=== PATIENT | male | born 1980 | race Caucasian/White ===

== ENCOUNTER → 2016-10-30 | Emergency (ER) | payer BC, OTHER ==
[~2016-10-30] MED LIST: diphenhydrAMINE HCL 25 MG CAPSULE (FP) PO ONE; predniSONE 20 MG TABLET (UD) ONE; predniSONE 20 MG TABLET (UD) PO ONE
[2016-10-30 07:39] VITALS: BP 134/70; PULSE 74; TEMP 97.9; BMI 27.3
--- NOTE | 2016-10-30 08:13 | PDOC ---
History of Present Illness - General Chief Complaint: Allergic Reaction Stated Complaint: ALLERGIC REACTION Time Seen by Provider: 10/30/16 07:47 History Source: Patient Exam Limitations: No Limitations - History of Present Illness Initial Comments: 10/30/16 08:21 35-year-old male presents to the emergency with complaints of itching to his chin and upper lip along with his lower lip since yesterday. Patient noted small bumps with mild redness and decided come to the ER since hydrocortisone has not improved his symptoms. 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 Patient also states had nuts that were very oily yesterday but denies true itchiness, difficulty swallowing, or difficulty breathing. Patient denies history of allergies. Timing/Duration: 24 hours Severity: mild Associated Symptoms: reports: rash Past History - Past Medical History Allergies/Adverse Reactions: Allergies Allergy/AdvReac Type Severity Reaction Status Date / Time No Known Allergies Allergy Verified 10/30/16 07:39 Home Medications: Ambulatory Orders Diphenhydramine HCl [Benadryl -] 25 mg PO Q8H PRN #12 capsule 10/30/16 Prednisone [Deltasone -] 40 mg PO DAILY #6 tablet 10/30/16 Other medical history: denies - Psycho/Social/Smoking Cessation Hx Suicidal Ideation: No Smoking History: Never smoked Information on smoking cessation initiated: No Hx Alcohol Use: No Drug/Substance Use Hx: No Substance Use Type: None Patient Lives Alone: No Lives with/in: spouse/SO Review of Systems - Review of Systems Able to Perform ROS?: Yes Constitutional: No: Symptoms Reported HEENTM: No: Symptoms Reported Respiratory: No: Symptoms reported Cardiac (ROS): No: Symptoms Reported Integumentary: Yes: Erythema, Pruritus, Rash *Physical Exam - Vital Signs Last Vital Signs Temp Pulse Resp BP Pulse Ox 97.9 F 74 18 134/70 100 10/30/16 07:37 10/30/16 07:37 10/30/16 07:37 10/30/16 07:37 10/30/16 07:37 - Physical Exam General Appearance: Yes: Nourished, Appropriately Dressed. No: Apparent Distress HEENT: positive: Pharynx Normal. negative: Pharyngeal Erythema Neck: positive: Supple. negative: Lymphadenopathy (R), Lymphadenopathy (L) Respiratory/Chest: positive: Lungs Clear, Normal Breath Sounds. negative: Respiratory Distress, Accessory Muscle Use, Stridor, Wheezing Integumentary: positive: Rash (Noted slightly erythematous fine papular rash to chin lower lip, and upper lip. Noted scattered pinhead size vesicles to the chin region.) Neurologic: positive: Motor Strength 5/5 (ambulatory) Medical Decision Making - Medical Decision Making 10/30/16 08:25 Patient with complaints of pruritic rash to her chin and lips since yesterday. Patient exam appears to have a contact dermatitis likely related to poison akash versus something he touched. Patient be ordered for prednisone and Benadryl here in the ER and discharged home with the same. *DC/Admit/Observation/Transfer Diagnosis at time of Disposition: Contact dermatitis Qualifiers: Contact dermatitis type: unspecified Contact dermatitis trigger: unspecified trigger Qualified Code(s): L25.9 - Unspecified contact dermatitis, unspecified cause - Discharge Dispostion Disposition: HOME Condition at time of disposition: Good - Prescriptions Prescriptions: Diphenhydramine HCl [Benadryl -] 25 mg PO Q8H PRN #12 capsule PRN Reason: For Itching Prednisone [Deltasone -] 40 mg PO DAILY #6 tablet - Referrals Referrals: CLAUDE HANSON [Primary Care Provider] - - Patient Instructions Printed Discharge Instructions: DI for Contact Dermatitis Additional Instructions: Please take medication as prescribed starting tomorrow since your given your first dose of prednisone here. Please take Benadryl as needed for itching. Please do not apply topical associate to the area for the next 5 days.
== END | disposition home or self-care (01) ==
LOC: JER 07:35
DX: L25.9 Unspecified contact dermatitis, unspecified cause (principal)
CPT/HCPCS: 99281-25

== ENCOUNTER 2017-01-19 09:58 | Emergency (ER) | payer OTHER, BC ==
[2017-01-19 10:04] VITALS: BP 132/52; PULSE 65; TEMP 97.6; BMI 26.9
[2017-01-19] MEDS ORDERED: TRIAMCINOLONE ACET 40MG/1ML VIAL IM ONE (10:17)
[2017-01-19] MEDS ORDERED: TRIAMCINOLONE ACET 40MG/1ML VIAL ONE (10:22)
--- NOTE | 2017-01-19 10:39 | PDOC ---
History of Present Illness - General Chief Complaint: Poison [place],Poison Edil Exposure Stated Complaint: POISON EDIL Time Seen by Provider: 01/19/17 10:17 History Source: Patient Exam Limitations: No Limitations - History of Present Illness Initial Comments: 01/19/17 10:34 Patient is a 36-year-old male, no significant medical history currently on no medication presents with vesicular, Toxicodendron patterned rash to bilateral arms. States that he was diagnosed with poison edil and given traumatic along cream it has since been getting worse. Denies any fever, no swelling, denies any rash to testicles or face. Past Medical History: Denies. Allergies: No known allergies Medications: See medication list Family History: Non-contributory Social History: Denies smoking, alcohol use, or IVDU Review of Systems GENERAL/CONSTITUTIONAL: No fever or chills. No weakness. No weight change. HEAD, EYES, EARS, NOSE AND THROAT: No change in vision. No ear pain or discharge. No sore throat. CARDIOVASCULAR: No chest pain or shortness of breath. RESPIRATORY: No cough, wheezing, or hemoptysis. GASTROINTESTINAL: No nausea, vomiting, diarrhea or constipation. No rectal bleeding. GENITOURINARY: No dysuria, frequency, or change in urination. MUSCULOSKELETAL: No joint or muscle swelling or pain. No neck or back pain. SKIN: Vesicular, pruritic rash to bilateral upper extremities NEUROLOGIC: No headache, vertigo, loss of consciousness, or loss of sensation. ENDOCRINE: No increased thirst. No abnormal weight change. HEMATOLOGIC/LYMPHATIC: No anemia, easy bleeding, or history of blood clots. ALLERGIC/IMMUNOLOGIC: No hives or skin allergy. No latex allergy. Physical Exam: GENERAL: The patient is awake, alert, and fully oriented, in no acute distress. EYES: Pupils equal, round and reactive to light, extraocular movements intact, sclera anicteric, conjunctiva clear. ENT: Ears normal, nares patent, oropharynx clear without exudates. Moist mucous membranes. No uvula deviation NECK: Normal range of motion, supple without lymphadenopathy, JVD, or masses. LUNGS: Breath sounds equal, clear to auscultation bilaterally. No wheezes, and no crackles. HEART: Regular rate and rhythm, normal S1 and S2 without murmur, rub or gallop. ABDOMEN: Soft, nontender, normoactive bowel sounds. No guarding, no rebound. No masses. No bruising or abrasions MUSCULOSKELETAL: Normal range of motion, no edema. . NEUROLOGICAL: Cranial nerves II through XII grossly intact. Normal speech, normal gait. SKIN: Warm, Dry, normal turgor, vesicular rash, Toxicodendron patterned to bilateral upper extremities. Past History - Past Medical History Allergies/Adverse Reactions: Allergies Allergy/AdvReac Type Severity Reaction Status Date / Time No Known Allergies Allergy Verified 01/19/17 10:00 Home Medications: Ambulatory Orders Prednisone [Deltasone -] 40 mg PO DAILY 01/19/17 Other medical history: DENIES. - Psycho/Social/Smoking Cessation Hx Suicidal Ideation: No Smoking History: Never smoked Hx Alcohol Use: No Drug/Substance Use Hx: No Substance Use Type: None *Physical Exam - Vital Signs Last Vital Signs Temp Pulse Resp BP Pulse Ox 97.6 F 65 19 132/52 98 01/19/17 10:00 01/19/17 10:00 01/19/17 10:00 01/19/17 10:00 01/19/17 10:00 ED Treatment Course - Medications Given in the ED: ED Medications Discontinued Medications Generic Name Dose Route Start Last Admin Trade Name Freq PRN Reason Stop Dose Admin Triamcinolone Acetonide 40 mg 01/19/17 10:17 01/19/17 10:30 Aristocort-40 Injection - IM 01/19/17 10:18 40 mg ONCE ONE Administration Medical Decision Making - Medical Decision Making 01/19/17 10:37 A/P: Patient here for evaluation of spreading poison edil, Kenalog 40 mg IM times one given, will DC patient home supportive care, Encourage patient to apply IV block or other lotion to decrease or rales, refrain from rubbing or scratching area. If any signs of infection needs to return back to ER *DC/Admit/Observation/Transfer Diagnosis at time of Disposition: Poison edil dermatitis - Discharge Dispostion Disposition: HOME Condition at time of disposition: Good Admit: No - Referrals Referrals: Claudio Anguiano [Primary Care Provider] - - Patient Instructions Printed Discharge Instructions: DI for Poison Edil Allergy Additional Instructions: Please refrain from rubbing or scratching area. If any increased redness, swelling, or signs of infection return to ER
== END 2017-01-19 10:46 | disposition home or self-care (01) ==
LOC: JERFT 09:58
PROC: 3E0233Z Introduction of Anti-inflammatory into Muscle, Percutaneous Approach (ICD-10-PCS; principal; 2017-01-19)
DX: L23.7 Allergic contact dermatitis due to plants, except food (principal)
CPT/HCPCS: 99281-25

== ENCOUNTER 2018-04-21 07:46 | Emergency (ER) | payer OTHER, BC ==
[2018-04-21 08:07] VITALS: BP 132/85; PULSE 71; TEMP 97.9; BMI 28.1
[2018-04-21] MEDS ORDERED: KETOROLAC TROMETHAMINE 60 MG/2 ML VIAL IM ONE (08:36)
[2018-04-21] MEDS ORDERED: KETOROLAC TROMETHAMINE 60 MG/2 ML VIAL ONE (08:40)
--- NOTE | 2018-04-21 08:41 | PDOC ---
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 non radiating no medical history or surgical history. Past History - Past Medical History Allergies/Adverse Reactions: Allergies Allergy/AdvReac Type Severity Reaction Status Date / Time No Known Allergies Allergy Verified 04/21/18 08:26 Home Medications: Ambulatory Orders Cyclobenzaprine HCl [Flexeril -] 10 mg PO TID PRN #21 tablet 04/21/18 Ibuprofen 800 mg PO TID PRN #20 tablet 04/21/18 Cardiac Disorders: No COPD: No CHF: No Liver Disease: No Psychiatric Problems: No - Surgical History Appendectomy: No Cholecystectomy: No GI Surgery: No - Immunization History Immunization Up to Date: No - Suicide/Smoking/Psychosocial Hx Smoking History: Never smoked Have you smoked in the past 12 months: No Information on smoking cessation initiated: No Hx Alcohol Use: No Drug/Substance Use Hx: No Substance Use Type: None Trauma Specific PMHX - Complaint Specific PMHX Arthritis: No Back Injury: No Neck Injury: No Hx Sacro Iliac Joint Dysfunction: No Review of Systems - Review of Systems Able to Perform ROS?: Yes Is the patient limited [place] proficient: No Constitutional: No: Symptoms Reported HEENTM: No: Symptoms Reported Respiratory: No: Symptoms reported, Other Cardiac (ROS): No: Symptoms Reported ABD/GI: No: Symptoms Reported : No: Symptoms Reported Musculoskeletal: Yes: Symptoms Reported, Back Pain *Physical Exam - Vital Signs Last Vital Signs Temp Pulse Resp BP Pulse Ox 97.9 F 71 18 132/85 98 04/21/18 08:01 04/21/18 08:01 04/21/18 08:01 04/21/18 08:01 04/21/18 08:01 - Physical Exam General Appearance: Yes: Nourished, Appropriately Dressed HEENT: positive: EOMI, HENNA Neck: positive: Supple Respiratory/Chest: positive: Lungs Clear, Normal Breath Sounds. negative: Chest Tender Cardiovascular: positive: Regular Rhythm, Regular Rate Gastrointestinal/Abdominal: positive: Normal Bowel Sounds, Soft. negative: Tender Musculoskeletal: positive: Normal Inspection, Decreased Range of Motion, Muscle Spasm (left mid thoracic paraspinal soft tissue ). negative: Vertebral Tenderness Extremity: positive: Normal Capillary Refill, Normal Inspection, Normal Range of Motion Integumentary: positive: Normal Color, Dry, Warm Neurologic: positive: Fully Oriented, Alert, Normal Mood/Affect, Normal Response , Motor Strength 5/5 Medical Decision Making - Medical Decision Making 04/21/18 08:37 cc: mid back pain, spasm to the left side no abd pain, no urine or bowel dysfunction no saddle anesthesia no vetebral pain, pain is reproduced with deep breath and movement dc home with muscle relaxants, ibuprofen follow up with pmd will give toradol 04/21/18 15:24 steady gait ambulating freely *DC/Admit/Observation/Transfer Diagnosis at time of Disposition: Muscle spasm of back, Muscle strain - Discharge Dispostion Disposition: HOME Condition at time of disposition: Good - Prescriptions Prescriptions: Cyclobenzaprine HCl [Flexeril -] 10 mg PO TID PRN #21 tablet PRN Reason: Muscle Spasms Ibuprofen 800 mg PO TID PRN #20 tablet PRN Reason: Back Pain - Referrals Referrals: Claudio Anguiano MD [Primary Care Provider] - - Patient Instructions Additional Instructions: apply heating pad to the area of pain every 4hrs for 20 minutes take the muscle relaxants as directed take ibuprofen as directed for pain do not stay in one position make sure you move around follow with your doctor for follow up if symptoms worsen or persist - Post Discharge Activity Forms/Work/School Notes: Back to Work
== END 2018-04-21 08:54 | disposition home or self-care (01) ==
LOC: JER 07:46 → JERFT 07:46
PROC: 3E0233Z Introduction of Anti-inflammatory into Muscle, Percutaneous Approach (ICD-10-PCS; principal; 2018-04-21)
DX: M62.830 Muscle spasm of back (principal); S29.012A Strain of muscle and tendon of back wall of thorax, initial encounter; X50.0XXA Overexertion from strenuous movement or load, initial encounter; Y93.89 Activity, other specified; Y92.69 Other specified industrial and construction area as the place of occurrence of the external cause; Y99.0 Civilian activity done for income or pay
CPT/HCPCS: 99281-25

== ENCOUNTER 2018-05-21 09:30 | Emergency (ER) | payer OTHER, BC ==
[2018-05-21 09:34] VITALS: BP 122/90; PULSE 72; TEMP 98.1; BMI 27.3
[2018-05-21] MEDS ORDERED: ACETAMINOPHEN 325 MG TABLET (FP) PO ONE (10:05)
[2018-05-21] MEDS ORDERED: ACETAMINOPHEN 325 MG TABLET (FP) ONE (10:08)
--- NOTE | 2018-05-21 10:11 | PDOC ---
History of Present Illness - General Chief Complaint: Injury Stated Complaint: HEAD INJURY Time Seen by Provider: 05/21/18 09:45 History Source: Patient - History of Present Illness Timing/Duration: reports: other (this am) Past History - Past Medical History Allergies/Adverse Reactions: Allergies Allergy/AdvReac Type Severity Reaction Status Date / Time No Known Allergies Allergy Verified 05/21/18 09:32 Home Medications: Ambulatory Orders NK [No Known Home Medication] 05/21/18 Cardiac Disorders: No COPD: No CHF: No Liver Disease: No Psychiatric Problems: No - Surgical History Appendectomy: No Cholecystectomy: No GI Surgery: No - Immunization History Immunization Up to Date: No - Suicide/Smoking/Psychosocial Hx Smoking History: Never smoked Have you smoked in the past 12 months: No Hx Alcohol Use: No Drug/Substance Use Hx: No Substance Use Type: None Review of Systems - Review of Systems HEENTM: No: Blurred Vision ABD/GI: No: Nausea, Vomiting Neurological: Yes: Headache, Dizziness *Physical Exam - Vital Signs Last Vital Signs Temp Pulse Resp BP Pulse Ox 98.1 F 72 16 122/90 05/21/18 09:32 05/21/18 09:32 05/21/18 09:32 05/21/18 09:32 - Physical Exam General Appearance: Yes: Appropriately Dressed. No: Apparent Distress HEENT: positive: Normal Voice, Other (contusion to R forehead, otherwise no facial swelling/deformity) Neck: positive: Supple Respiratory/Chest: negative: Respiratory Distress Integumentary: positive: Dry, Warm Neurologic: positive: Fully Oriented, Alert, Normal Mood/Affect, Motor Strength 5/5 Medical Decision Making - Medical Decision Making 05/21/18 10:09 37 yo M, denies any past medical history, here with facial injury after a [address] struck his forehead at work this a.m. No LOC. Had some dizziness initially that has since resolved. Only reports pain to site of injury. No nausea, vomiting or visual changes. See exam Facial contusion s/p minor head injury this am No LOC No indication for neuroimaging at this time Well caleb and alert w/ no focal deficits -ice pack and tylenol given in ED -dc w/ strict return precautions *DC/Admit/Observation/Transfer Diagnosis at time of Disposition: Contusion Qualifiers: Encounter type: initial encounter Contusion area: head Contusion of head detail : other part of head Qualified Code(s): S00.83XA - Contusion of other part of head, initial encounter Head injury Qualifiers: Encounter type: initial encounter Qualified Code(s): S09.90XA - Unspecified injury of head, initial encounter - Discharge Dispostion Disposition: HOME Condition at time of disposition: Improved - Referrals Referrals: Claudio Anguiano MD [Primary Care Provider] - - Patient Instructions Printed Discharge Instructions: DI for Closed Head Injury, Contusion Additional Instructions: You sustained a facial contusion from your head injury this a.m. There was no indication for a head CT at this time as discussed in the ER. Take Tylenol for headache as needed and use ice pack for facial swelling. If headache worsens and/or you develop nausea, vomiting, dizziness, visual changes or any other concerning symptoms, return to the ER immediately - Post Discharge Activity
== END 2018-05-21 10:12 | disposition home or self-care (01) ==
LOC: JERFT 09:30
DX: S00.83XA Contusion of other part of head, initial encounter (principal); S09.90XA Unspecified injury of head, initial encounter; W22.8XXA Striking against or struck by other objects, initial encounter; Y93.89 Activity, other specified; Y92.410 Unspecified street and highway as the place of occurrence of the external cause
CPT/HCPCS: 99281-25

== ENCOUNTER 2018-12-02 12:42 | Emergency (ER) | payer OTHER, BC | END 2018-12-02 14:20 | disposition home or self-care (01) | LOC: JERFT 12:42 ==

== ENCOUNTER 2019-01-04 12:25 | Emergency (ER) | payer OTHER, BC ==
[2019-01-04 12:49] VITALS: BP 110/70; PULSE 81; TEMP 98.5; BMI 26.3
--- NOTE | 2019-01-04 13:21 | PDOC ---
History of Present Illness - General Chief Complaint: Back Pain Stated Complaint: BACK PAIN Time Seen by Provider: 01/04/19 13:14 History Source: Patient Exam Limitations: No Limitations - History of Present Illness Initial Comments: 01/04/19 13:21 Patient is here with complaints of acute onset of pain to his right thoracic back. States Works at [employer] and was lifting a heavy truck trunk when he felt the acute onset of pain there. Denies numbness or tingling to hand, no leg pain. Has no fever or any problems with bowel or bladder. Occurred: reports: just prior to arrival Severity: reports: mild, moderate Pain Location: reports: back Method of Injury: Yes: unknown Modifying Factors: improves with: None Loss of Consciousness: no loss of consciousness Associated Symptoms (Fall): denies symptoms Past History - Travel Traveled outside of the country in the last 30 days: No Close contact w/someone who was outside of country & ill: No - Past Medical History Allergies/Adverse Reactions: Allergies Allergy/AdvReac Type Severity Reaction Status Date / Time No Known Allergies Allergy Verified 01/04/19 12:46 Home Medications: Ambulatory Orders Cyclobenzaprine HCl 10 mg PO Q8H PRN #14 tablet 01/04/19 Naproxen [Naprosyn -] 500 mg PO BID #30 tablet 01/04/19 Cardiac Disorders: No COPD: No CHF: No DVT: No Liver Disease: No Psychiatric Problems: No - Surgical History Appendectomy: No Cholecystectomy: No GI Surgery: No - Immunization History Immunization Up to Date: Yes - Suicide/Smoking/Psychosocial Hx Smoking History: Never smoked Have you smoked in the past 12 months: No Information on smoking cessation initiated: No Hx Alcohol Use: No Drug/Substance Use Hx: No Substance Use Type: None Trauma Specific PMHX - Complaint Specific PMHX Arthritis: No Back Injury: No Neck Injury: No Hx Sacro Iliac Joint Dysfunction: No Review of Systems - Review of Systems Able to Perform ROS?: Yes Is the patient limited Amharic proficient: Yes Constitutional: Yes: Symptoms Reported, See HPI, Malaise. No: Fever HEENTM: No: Symptoms Reported Respiratory: Yes: See HPI, Cough. No: Symptoms reported Cardiac (ROS): No: Symptoms Reported ABD/GI: No: Symptoms Reported Musculoskeletal: Yes: Symptoms Reported, See HPI, Back Pain, Muscle Weakness Integumentary: Yes: See HPI. No: Symptoms Reported, Bruising All Other Systems: Reviewed and Negative *Physical Exam - Vital Signs Last Vital Signs Temp Pulse Resp BP Pulse Ox 98.5 F 81 16 110/70 96 01/04/19 12:47 01/04/19 12:47 01/04/19 12:47 01/04/19 12:47 01/04/19 12:47 - Physical Exam General Appearance: Yes: Nourished, Appropriately Dressed, Apparent Distress HEENT: positive: HENNA, Normal ENT Inspection, TMs Normal, Pharynx Normal Neck: positive: Supple. negative: Tender Respiratory/Chest: positive: Lungs Clear, Normal Breath Sounds, Other (palpable spasm noted to the paravertebral spinous muscle at thoracic spines approximately 02/04/2010 on the right side. Has no bone tenderness crepitus or step-offs, full range of motion is intact.) Gastrointestinal/Abdominal: positive: Soft. negative: Tender Extremity: positive: Normal Capillary Refill Integumentary: positive: Normal Color, Dry, Warm. negative: Pale, Rash Neurologic: positive: resident in diagnostic radiology II-XII NML intact, Fully Oriented, Alert, Normal Mood/ Affect, Normal Response, Motor Strength 5/5 Progress Note - Progress Note Progress Note: Muscle strain of right thoracic spine muscles. We'll treat with NSAIDs and cyclobenzaprine *DC/Admit/Observation/Transfer Diagnosis at time of Disposition: Muscle spasm of back - Discharge Dispostion Disposition: HOME Condition at time of disposition: Stable Decision to Admit order: No - Referrals - Patient Instructions Printed Discharge Instructions: DI for Back Strain or Sprain Additional Instructions: Rest, no heavy lifting or exercise until pain is resolved Hot soaks to neck and low back as often as possible/hot showers or Jacuzzis No massage or therapy until spasm is gone Continue Naprosyn 500 mg tablet, 1 tablet every 8 hours for the next 3 days then as needed for pain and swelling Cyclobenzaprine 1-10mg every 8 hours as needed for spasm If not significant improvement within 24 hours with medication and rest regime, followup with private physician for change in medications and /or therapy. - Post Discharge Activity Forms/Work/School Notes: Back to Work
== END 2019-01-04 13:35 | disposition home or self-care (01) ==
LOC: JERFT 12:25
DX: M62.830 Muscle spasm of back (principal); X58.XXXA Exposure to other specified factors, initial encounter; Y93.89 Activity, other specified; Y92.830 Public park as the place of occurrence of the external cause; Y99.0 Civilian activity done for income or pay
CPT/HCPCS: 99281-25

== ENCOUNTER 2021-11-30 11:36 | Emergency (ER) | payer OTHER, BC ==
[2021-11-30 12:07] VITALS: BP 111/70; PULSE 104; TEMP 97.9; BMI 25.7
[2021-11-30] MEDS ORDERED: DIPHTH,PERTUSS(ACELL),TET 0.5 ML DISP.SYRIN IM ONE ×2 (13:02→13:04)
== END 2021-11-30 13:22 | disposition home or self-care (01) ==
LOC: JER 11:36 → JERFT 11:36
PROC: 3E0234Z Introduction of Serum, Toxoid and Vaccine into Muscle, Percutaneous Approach (ICD-10-PCS; principal; 2021-11-30)
DX: S81.011A Laceration without foreign body, right knee, initial encounter (principal); W26.8XXA Contact with other sharp object(s), not elsewhere classified, initial encounter; Y93.H2 Activity, gardening and landscaping
CPT/HCPCS: 90715; 99284-25

== ENCOUNTER 2022-11-10 11:35 | Emergency (ER) | payer OTHER, BC ==
[2022-11-10 11:56] VITALS: BP 121/79; PULSE 70; RESP 18; TEMP 97.5; BMI 25.8
[2022-11-10] MEDS ORDERED: KETOROLAC TROMETHAMINE 30 MG/1 ML VIAL IM ONE (14:02)
[2022-11-10] MEDS ORDERED: KETOROLAC TROMETHAMINE 30 MG/1 ML VIAL ONE (14:04)
== END 2022-11-10 14:12 | disposition home or self-care (01) ==
LOC: JERFT 11:35
PROC: 3E0233Z Introduction of Anti-inflammatory into Muscle, Percutaneous Approach (ICD-10-PCS; principal; 2022-11-10)
DX: M54.50 Low back pain, unspecified (principal); S39.012A Strain of muscle, fascia and tendon of lower back, initial encounter; X50.0XXA Overexertion from strenuous movement or load, initial encounter; Y93.F2 Activity, caregiving, lifting; Y92.830 Public park as the place of occurrence of the external cause; Y99.0 Civilian activity done for income or pay
CPT/HCPCS: 99284-25

== ENCOUNTER 2023-01-20 09:47 | Emergency (ER) | payer OTHER ==
[2023-01-20 10:01] VITALS: BP 120/83; PULSE 76; RESP 13; TEMP 97.9; BMI 26.6
[2023-01-20] MEDS ORDERED: KETOROLAC TROMETHAMINE 15 MG/ML VIAL IM ONE (10:29)
[2023-01-20] MEDS ORDERED: LIDOCAINE 5% TOPICAL PATCH TP ONE (10:30)
[2023-01-20] MEDS ORDERED: KETOROLAC TROMETHAMINE 30 MG/1 ML VIAL ONE (10:31)
[2023-01-20] MEDS ORDERED: LIDOCAINE 5% TOPICAL PATCH ONE (10:31)
[2023-01-20] MEDS ORDERED: LIDOCAINE PATCH REMOVAL MC ONE (22:00)
== END 2023-01-20 11:29 | disposition home or self-care (01) ==
LOC: JERFT 09:47
PROC: 3E0233Z Introduction of Anti-inflammatory into Muscle, Percutaneous Approach (ICD-10-PCS; principal; 2023-01-20)
DX: S39.012A Strain of muscle, fascia and tendon of lower back, initial encounter (principal); X50.0XXA Overexertion from strenuous movement or load, initial encounter; Y99.0 Civilian activity done for income or pay
CPT/HCPCS: 99284-25

== ENCOUNTER 2023-11-30 11:31 | Emergency (ER) | payer OTHER ==
[2023-11-30 11:52] VITALS: BP 120/79; PULSE 77; RESP 19; TEMP 98.2; BMI 25.8
[2023-11-30] MEDS ORDERED: LIDOCAINE 4% PATCH TP ONE (13:13)
[2023-11-30] MEDS ORDERED: ACETAMINOPHEN 500 MG TABLET (FP) ONE (13:14)
[2023-11-30] MEDS ORDERED: KETOROLAC TROMETHAMINE 30 MG/1 ML VIAL ONE (13:14)
[2023-11-30] MEDS: LIDOCAINE 4% PATCH TP ONE (13:21)
[2023-11-30] MEDS: KETOROLAC TROMETHAMINE 30 MG/1 ML VIAL IM ONE (13:21)
[2023-11-30] MEDS: ACETAMINOPHEN 500 MG TABLET (FP) PO ONE (13:22)
[2023-11-30] MEDS ORDERED: LIDOCAINE PATCH REMOVAL MC SCH (22:00)
== END 2023-11-30 13:24 | disposition home or self-care (01) ==
LOC: JERFT 11:31
PROC: 3E0233Z Introduction of Anti-inflammatory into Muscle, Percutaneous Approach (ICD-10-PCS; principal; 2023-11-30)
DX: M62.830 Muscle spasm of back (principal)
CPT/HCPCS: 99284-25

== ENCOUNTER 2024-02-15 07:31 | Emergency (ER) | payer OTHER ==
[2024-02-15 07:43] VITALS: BP 116/86; PULSE 69; RESP 16; TEMP 97.6; BMI 26.6
[2024-02-15] MEDS ORDERED: IBUPROFEN 600 MG TABLET (FP) PO ONE (08:09)
[2024-02-15] MEDS ORDERED: LIDOCAINE 5% TOPICAL PATCH ONE (08:09)
[2024-02-15] MEDS: IBUPROFEN 600 MG TABLET (FP) PO ONE (08:12)
[2024-02-15] MEDS: LIDOCAINE 5% TOPICAL PATCH TP ONE (08:12)
[2024-02-15] MEDS ORDERED: LIDOCAINE PATCH REMOVAL MC SCH (22:00)
== END 2024-02-15 08:40 | disposition home or self-care (01) ==
LOC: JERFT 07:31 → JER 07:31 → JERFT 08:40
DX: M54.50 Low back pain, unspecified (principal); X50.0XXA Overexertion from strenuous movement or load, initial encounter
CPT/HCPCS: 99283-25

== ENCOUNTER 2024-06-09 09:23 | Emergency (ER) | payer BC ==
[2024-06-09 09:35] VITALS: BP 133/86; PULSE 97; RESP 16; TEMP 99.2; BMI 25.8
[2024-06-09 11:59] LABS: HIV INTERPRETATION NEGATIVE (NEGATIVE)
== END 2024-06-09 10:32 | disposition home or self-care (01) ==
LOC: JERFT 09:23
DX: R50.9 Fever, unspecified (principal); M79.10 Myalgia, unspecified site; R05.9 Cough, unspecified; R09.89 Other specified symptoms and signs involving the circulatory and respiratory systems; Z20.822 Contact with and (suspected) exposure to COVID-19
CPT/HCPCS: 0241U-QW; 36415; 86803; 87389; 99283-25